=== PATIENT | female | born 1975 | race Caucasian/White ===

== ENCOUNTER 2016-11-06 09:35 | Inpatient (IN) | payer OTHER ==
[~2016-11-06 09:35] MED LIST: IBUPROFEN200 M3 PO; KEFLEX500 MG; ORTHO-CEPT1 TAB; ORTHO-CEPT1 TAB PO; PRENATAL1 TAB; TUMS500 M1 PO; VITAMIN D50000 UNI2 PO; XANAX0.25 M1 PO; XANAX2 MG PO; XOPENEX HFA15 GM; XOPENEX1.25 MG/3 IH; ZITHROMAX250MG Z-PAK PO; ZOFRAN4 MG PO
--- NOTE | 2016-11-06 20:13 | NUR ---
VIRTUAL CARE NOTE: ASSESSMENT DEFERRED. PT. SLEEPING.
--- NOTE | 2016-11-07 16:45 | NUR ---
VIRTUAL CARE NOTE: PT RESTING ON BED, STATES DOING GOOD TODAY, PLAN OF CARE AND DISCHARGE PLAN DISCUSSED. WILL PLAN DC HOME TOMORROW, PT AND WILL PRACTICE ON [employer] CARES WHILE HERE. PT DENIES ANY NEEDS OR CONCERNS AT THIS TIME.
[2016-11-08] MEDS ORDERED: MOTRIN IB200 M1 PO (10:23)
[2016-11-08] MEDS ORDERED: TYLENOL EXTRA500 M1 PO (10:29)
[2016-11-08] MEDS ORDERED: MILK OF MAGNESIA PO (10:31)
[2016-11-08] MEDS ORDERED: NORCO 5-325 TA1 EACH PO (10:34)
--- NOTE | 2016-11-08 15:56 | NUR ---
VIRUTAL CARE NOTE: PT SITTING ON CHAIR, AT BEDSIDE READY FOR DISCHARGE TEACHING. INFORMATION GIVEN TO PT AND , ALL QUESTIONS ANSWERED, DEMONSTRATED DRAIN CARE. PT AND DENIES QUESTIONS OR CONCERNS. INFORMED FLOOR NURSE DISCHARGE TEACHING DONE.
== END 2016-11-08 16:25 | DRG 581 ==
LOC: SHSB 09:35 → ORW 12:10 → PACU 15:31 → 5WD 17:15
PROVIDERS: ADMIT Specialist
PROC: 0HRV0JZ Replacement of Bilateral Breast with Synthetic Substitute, Open Approach (ICD-10-PCS; principal; 2016-11-06)
PROC: 07B60ZZ Excision of Left Axillary Lymphatic, Open Approach (ICD-10-PCS; 2016-11-06)
DX: C50.912 Malignant neoplasm of unspecified site of left female breast (principal); I10 Essential (primary) hypertension; Z17.0 Estrogen receptor positive status [ER+]; R01.1 Cardiac murmur, unspecified; F41.9 Anxiety disorder, unspecified; J45.909 Unspecified asthma, uncomplicated; Z79.899 Other long term (current) drug therapy
CPT/HCPCS: C1713; C1781; C1789; J0690; J1170; J2250; J2765; J2795; J3370

== ENCOUNTER 2016-11-19 11:02 | Inpatient (IN) | payer OTHER ==
[~2016-11-19 11:02] MED LIST changes: +MILK OF MAGNESIA PO; +MOTRIN IB200 M1 PO; +NORCO 5-325 TA1 EACH PO; +TYLENOL EXTRA500 M1 PO
[2016-11-19 11:18] LABS: BASO % 0.4 % (0-2); EOS % 6.2 % (0-7); EOSINOPHIL ABSOLUTE COUNT 0.5 tho/cmm (0.0-0.7); HCT-HEMATOCRIT 30.8 % (34.0-49.0); IMMATURE GRANULOCYTES ABSOLUTE 0.01 tho/cmm (0-0.03); IMMATURE GRANULOCYTES PERCENT 0.1 % (0-0.3); LYMPH % 20.7 % (20-45); LYMPH ABSOLUTE COUNT 1.7 tho/cmm (0.8-4.5); MCH (MEAN CORPUSCULAR HGB) 28.2 pg (28.0-32.0); MCHC MEAN CORPUSCULAR HGB CONC 32.5 % (32.0-36.0); MCV (MEAN CELL VOLUME) 86.8 fl (82.0-96.0); MEAN PLATELET VOLUME 9.5 cmc (9.4-12.4); MONO % 7.5 % (0-12); MONOCYTE ABSOLUTE COUNT 0.6 tho/cmm (0.0-1.2); NEUTROPHIL ABSOLUTE COUNT 5.3 tho/cmm (1.6-8.0); NEUTROPHIL-AUTOMATED 5.3 tho/cmm (1.6-8.0); NEUTROPHILS % 65.1 % (40-80); PLATELET COUNT 282 tho/cmm (150-450); RED BLOOD COUNT 3.55 mil/cmm (4.00-5.20); RED CELL DISTRIBUTION WIDTH 13.7 % (12.4-16.4); WHITE BLOOD COUNT 8.1 tho/cmm (4.0-10.0)
[2016-11-19 11:35] LABS: ALB/GLOB RATIO 0.6 (0.8-2.0); ALBUMIN 2.9 g/dl (3.5-5.0); ALKALINE PHOSPHATASE 88 U/L (33-138); ALT/SGPT 35 U/L (12-78); ANION GAP 14 mmol/L (0-20); AST/SGOT 18 U/L (10-40); BILIRUBIN,TOTAL 0.2 mg/dl (0-1.5); BLOOD UREA NITROGEN 13 mg/dl (6-24); CALCIUM 8.6 mg/dl (8.5-10.5); CARBON DIOXIDE-VENOUS 25 mmol/L (22-32); CHLORIDE 104 mmol/l (96-110); CREATININE 0.98 mg/dl (0.50-1.10); GLUCOSE 86 mg/dL (70-110); POTASSIUM 4.5 mmol/L (3.7-5.1); SODIUM 138 mmol/L (135-145); eGFR VALUE FOR BLACK 84 mL/Min
[2016-11-19] MEDS ORDERED: BACTRIM DS TAB1 EAC2 PO (12:53)
[2016-11-19] MEDS ORDERED: BACTROBAN15 G1 TOP (12:55)
[2016-11-19 14:01] LABS: URINE BILIRUBIN NEGATIVE (NEG); URINE BLOOD SMALL (NEG); URINE GLUCOSE (UA) NEGATIVE (NEG); URINE KETONE NEGATIVE (NEG); URINE LEUKOCYTE ESTERASE NEGATIVE (NEG); URINE NITRITE NEGATIVE (NEG); URINE PROTEIN NEGATIVE (NEG); URINE SPECIFIC GRAVITY 1.015 (1.003-1.030)
[2016-11-19 14:02] LABS: URINE APPEARANCE CLEAR; URINE COLOR YELLOW
[2016-11-19 14:11] LABS: URINE EPITHELIAL CELLS RARE /[HPF] (0-10); URINE RBC 0-1 /[HPF] (0-5); URINE WBC 0 /[HPF] (0-5)
[2016-11-20 11:22] LABS: C-REACTIVE PROTEIN 3.3 mg/dl (0-0.9)
[2016-11-21] MEDS ORDERED: CUBICIN500 MG IV (14:54)
[2016-11-21] MEDS ORDERED: STOP THE FOLLOWING (14:55)
== END 2016-11-21 15:50 | DRG 863 ==
LOC: LAB 11:02 → 5WF 12:18
PROVIDERS: ADMIT Plastic Surgery
DX: T81.4XXA Infection following a procedure, initial encounter (principal); I10 Essential (primary) hypertension; B95.61 Methicillin susceptible Staphylococcus aureus infection as the cause of diseases classified elsewhere; J45.998 Other asthma; R01.1 Cardiac murmur, unspecified; Z85.3 Personal history of malignant neoplasm of breast; Z90.13 Acquired absence of bilateral breasts and nipples; Z87.891 Personal history of nicotine dependence; Z79.899 Other long term (current) drug therapy
CPT/HCPCS: J0878; J3370; J7050